=== PATIENT | male | born 1990 | race Two or more races ===

== ENCOUNTER → 2017-01-18 20:51 | Emergency (ER) | payer BC ==
[~2017-01-18 20:51] MED LIST: Dexamethasone TAB* 4 MG PO ONE
[2017-01-18 20:57] VITALS: BP 132/69
--- NOTE | 2017-01-18 22:03 | ED ---
Throat Pain/Nasal Congestion - HPI Summary HPI Summary: 26M presents with sore throat since . He denies any difficultly swallowing. he denies any chest pain, SOB, cough. He admits to headache, ear pain and occasionally sinus congestion. He denies any history of strept. he denies any one else being sick. He took ibuprofen without relief. 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 no fever. - History of Current Complaint Chief Complaint: EDThroatPain Time Seen by Provider: 01/18/17 21:13 - Allergies/Home Medications Allergies/Adverse Reactions: Allergies Allergy/AdvReac Type Severity Reaction Status Date / Time Aspirin Allergy Anaphylatic Verified 01/18/17 20:53 Shock Penicillins Allergy Unknown Verified 01/18/17 20:53 Reaction Details PMH/Surg Hx/FS Hx/Imm Hx Endocrine/Hematology History: Denies: Hx Anticoagulant Therapy Cardiovascular History: Denies: Hx Hypertension Infectious Disease History: No Infectious Disease History: Denies: Traveled Outside the [place] in Last 30 Days - Family History Known Family History: Negative: Cardiac Disease - Social History Alcohol Use: Occasionally Substance Use Type: Reports: None Smoking Status (MU): Unknown if Ever Smoked Review of Systems Negative: Fever Positive: Sore Throat Negative: Chest Pain Negative: Shortness Of Breath All Other Systems Reviewed And Are Negative: Yes Physical Exam Triage Information Reviewed: Yes Vital Signs On Initial Exam: Initial Vitals Temp Pulse Resp BP Pulse Ox 97.6 F 57 16 132/69 98 01/18/17 20:54 01/18/17 20:54 01/18/17 20:54 01/18/17 20:54 01/18/17 20:54 Vital Signs Reviewed: Yes Appearance: Positive: Well-Appearing Skin: Positive: Warm, Dry Head/Face: Positive: Normal Head/Face Inspection Eyes: Positive: Normal, EOMI, PADMAJA, Conjunctiva Clear ENT: Positive: Pharyngeal erythema, TMs normal, Tonsillar swelling, Other - uvula midline, soft palate symmetric. Negative: Tonsillar exudate, Trismus, Muffled/hoarse voice Neck: Positive: Supple, Nontender, No Lymphadenopathy Respiratory/Lung Sounds: Positive: Clear to Auscultation, Breath Sounds Present Cardiovascular: Positive: Normal, RRR Diagnostics - Vital Signs Vital Signs Temp Pulse Resp BP Pulse Ox 01/18/17 20:54 97.6 F 57 16 132/69 98 - Laboratory Lab Statement: Any lab studies that have been ordered have been reviewed, and results considered in the medical decision making process. EENT Course/Dx - Course Course Of Treatment: 26M presents with sore throat since . He denies any difficultly swallowing. he denies any chest pain, SOB, cough. He admits to headache, ear pain and occasionally sinus congestion. He denies any history of strept. he denies any one else being sick. He took ibuprofen without relief. on exam tonsils+2, uvula midline, soft palate symmetric. strept neg. will treat with decadron. patient understands and agrees with plan. - Differential Diagnoses Differential Diagnoses: Pharyngitis, URI/Bronchitis, Other - strept - Diagnoses Provider Diagnoses: Pharyngitis Discharge - Discharge Plan Condition: Good Disposition: HOME Prescriptions: Dexamethasone TAB* [Decadron TAB*] 4 mg PO DAILY #4 tab Magic Mouth Was-GRACE/MAAL/LIDO* 5 ml SWISH SPIT QID #100 ml Patient Education Materials: Pharyngitis (ED) Forms: *Work Release Referrals: Non Staff,Doctor [Primary Care Provider] - Additional Instructions: Magic mouthwash 5ml swish and spit can use 4x a day Take steroid once a day for 4 more days Take Tylenol or ibuprofen for pain Use saline spray in nose as much as needed Use humidifier in room or can use warm water in bowls Can gargle salt water Can use cough drops or products such as cloraseptic spray Return to ED if develop fever does not respond to Tylenol or ibuprofen, inability to swallow, or difficulty breathing or any new or worsening symptoms
== END | disposition home or self-care (01) ==
LOC: ED 20:51
DX: J02.9 Acute pharyngitis, unspecified (principal)
CPT/HCPCS: 87651; 99282; J8540

== ENCOUNTER 2017-01-29 17:28 | Emergency (ER) | payer BC ==
[2017-01-29 17:34] VITALS: BP 153/83
--- NOTE | 2017-01-29 17:36 | UC ---
Throat Pain/Nasal Loi HPI - HPI Summary HPI Summary: 26 YEAR OLD MALE PRESENTS WITH COMPLAINS OF SORE THROAT - History of Current Complaint Chief Complaint: UCGeneralIllness Stated Complaint: THROAT PAIN Time Seen by Provider: 01/29/17 17:36 Hx Obtained From: Patient Onset/Duration: Sudden Onset Severity: Moderate Pain Scale Used: 0-10 Numeric - 7 Cough: Nonproductive Associated Signs & Symptoms: Positive: Negative - Allergies/Home Medications Allergies/Adverse Reactions: Allergies Allergy/AdvReac Type Severity Reaction Status Date / Time Aspirin Allergy Anaphylatic Verified 01/29/17 17:34 Shock Penicillins Allergy Unknown Verified 01/29/17 17:34 Reaction Details PMH/Surg Hx/FS Hx/Imm Hx Previously Healthy: Yes Other History Of: Negative For: Anticoagulant Therapy - Surgical History Surgical History: None - Family History Known Family History: Negative: Cardiac Disease - Social History Alcohol Use: Occasionally Substance Use Type: None Smoking Status (MU): Never Smoked Tobacco Review of Systems Constitutional: Negative Skin: Negative Eyes: Negative ENT: Sore Throat, Nasal Discharge Respiratory: Negative Cardiovascular: Negative Gastrointestinal: Negative Genitourinary: Negative Motor: Negative Neurovascular: Negative Musculoskeletal: Negative Neurological: Negative Psychological: Negative All Other Systems Reviewed And Are Negative: Yes Physical Exam Triage Information Reviewed: Yes Vital Signs: Initial Vital Signs Temp 36.9 C 01/29/17 17:30 Pulse 81 01/29/17 17:30 Resp 18 01/29/17 17:30 BP 153/83 01/29/17 17:30 Pulse Ox 98 01/29/17 17:30 Eye Exam: Normal ENT: Positive: Pharyngeal erythema, Nasal drainage Dental Exam: Normal Neck exam: Normal Neck: Positive: 1 Respiratory Exam: Normal Cardiovascular Exam: Normal Abdominal Exam: Normal Musculoskeletal Exam: Normal Neurological Exam: Normal Psychological Exam: Normal Skin Exam: Normal Throat Pain/Nasal Course/Dx - Differential Dx/Diagnosis Provider Diagnoses: PHARYNGEAL ERYTHEMA. POST NASAL DRIP Discharge - Discharge Plan Condition: Stable Disposition: HOME Prescriptions: Azithromyxin LAMINE (NF) [Z-Lamine (Zithromax) 250 mg tabs #6] 2 tab PO .TODAY, THEN 1 DAILY #6 tab Chlorhexidine MW 0.12% 473ML* [Peridex Mouth Wash 0.12%*] 15 ml PO TID PC #480 ml LoraTADine TAB(NF) [Claritin 10 MG TAB(NF)] 10 mg PO DAILY #30 tab Patient Education Materials: Allergic Rhinitis (ED) Referrals: Non Staff,Doctor [Medical Doctor] -
== END 2017-01-29 18:03 | disposition home or self-care (01) ==
LOC: UCEAST 17:28
DX: J39.2 Other diseases of pharynx (principal); R09.82 Postnasal drip; Z88.6 Allergy status to analgesic agent; Z88.0 Allergy status to penicillin
CPT/HCPCS: 87070; 87651; 99212; G0463

== ENCOUNTER 2017-02-11 16:44 | Emergency (ER) | payer BC ==
[2017-02-11 16:57] VITALS: BP 129/70
--- NOTE | 2017-02-11 17:20 | UC ---
Respiratory Complaint HPI - HPI Summary HPI Summary: Pt here w/ URI sx 27 days now. Start[address] as ST w/ dysphagia. Went to ED 2 days later (01/18/2017). Saw Dr. Dyer - neg rapid strep but was tx'd w/ magic mouthwash and steroids. [place] better w/ steroid then pain returned upon completing. Was seen a 2nd time on 01/[address] Santos w/ ST and URI sx - rapid strep neg again - pt started on zpak, loratadine and chlorhexadine - some relief until past couple of days again. Throat cx revealed neg results. He admits to h/o allergies this time of year - usually better within 2 weeks of taking zytrec - not improving this year by trying this method. Denies fever, chills, N/V/D, ab pain, chest pain, SOB. Has a dry cough worse in AM. No rash. 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 Denies h/o autoimmune dz, diabetes. - History of Current Complaint Chief Complaint: UCRespiratory Stated Complaint: SORE THROAT, COUGH, AND CHEST CONGESTION Time Seen by Provider: 02/11/17 17:00 Hx Obtained From: Patient, Family/Test Pilot - female partner - Allergies/Home Medications Allergies/Adverse Reactions: Allergies Allergy/AdvReac Type Severity Reaction Status Date / Time Aspirin Allergy Anaphylatic Verified 02/11/17 16:57 Shock Penicillins Allergy Unknown Verified 02/11/17 16:57 Reaction Details PMH/Surg Hx/FS Hx/Imm Hx Previously Healthy: Yes Respiratory History: Other - seasonal allergies Other Respiratory History: seasonal allergies Other History Of: Negative For: Anticoagulant Therapy - Surgical History Surgical History: None - Family History Known Family History: Negative: Cardiac Disease - Social History Occupation: Employed Full-time Lives: With Family Alcohol Use: Occasionally Substance Use Type: None Smoking Status (MU): Never Smoked Tobacco Review of Systems Constitutional: Negative Skin: Negative Eyes: Eye Redness - watery w/o itching ENT: Other - see HPI Respiratory: Negative Cardiovascular: Negative Gastrointestinal: Negative, Other - no organomegaly Motor: Negative Neurovascular: Negative Musculoskeletal: Negative Neurological: Negative, Other - (-) Samantha (-) Lucinda Psychological: Negative Is Patient Immunocompromised?: No All Other Systems Reviewed And Are Negative: Yes Physical Exam Triage Information Reviewed: Yes Appearance: No Pain Distress - appears mildly fatigued but speaking in full sentences w/o difficulty, Obese Vital Signs: Initial Vital Signs Temp 98.5 F 02/11/17 16:55 Pulse 59 02/11/17 16:55 Resp 16 02/11/17 16:55 BP 129/70 02/11/17 16:55 Pulse Ox 98 02/11/17 16:55 Eyes: Positive: Other: - sclera w/ mild injection - no edema. Negative: Discharge ENT: Positive: Hearing grossly normal, Nasal congestion, TMs normal, Other: - tonsils +2, cryptic, no erythema, no exudate. Negative: Tonsillar swelling, Tonsillar exudate, Trismus, Muffled/hoarse voice Dental Exam: Normal Dental: Negative: Abscess @ Neck exam: Normal - sinuses NTTP Neck: Positive: Supple, Nontender, No Lymphadenopathy Respiratory Exam: Normal Respiratory: Positive: Lungs clear, Normal breath sounds. Negative: Crackles, Rhonchi, Stridor, Wheezing Cardiovascular Exam: Normal Cardiovascular: Positive: RRR. Negative: No Murmur Abdominal Exam: Normal Abdomen Description: Positive: Nontender, No Organomegaly, Soft Bowel Sounds: Positive: Present Musculoskeletal Exam: Normal Musculoskeletal: Positive: Strength Intact Neurological Exam: Normal Psychological Exam: Normal Skin Exam: Normal UC Diagnostic Evaluation - Laboratory O2 Sat by Pulse Oximetry: 98 Respiratory Course/Dx - Course Course Of Treatment: URI vs. allergies. With prolonged sx, will test for mono. Flu and strep continue to be negative. Will refer to ENT for further assessment of upper resp tract - Differential Dx/Diagnosis Provider Diagnoses: chronic URI sx Discharge - Discharge Plan Condition: Stable Disposition: HOME Prescriptions: Fluticasone NASAL * [Flonase *] 2 spray BOTH NARES DAILY #1 bottle Patient Education Materials: Upper Respiratory Infection (ED), Allergies (ED) Referrals: Joao Smith MD [Medical Doctor] - Additional Instructions: Start prescription nasal spray Continue antihistamines Try saline nasal washes and throat gargles Follow-up with ENT this week - call tomorrow to schedule an appointment as you may need further intervention *If you develop difficulty breathing or swallowing, go to ED
[2017-02-12 10:56] LABS: Hematocrit 41 % (42-52); Hemoglobin 13.7 g/dl (14.0-18.0); Mean Corpuscular HGB Conc 34 g/dl (31-36); Mean Corpuscular Hemoglobin 28 pg (27-31); Mean Corpuscular Volume 83 fL (80-94); Mean Platelet Volume 8 um3 (7.4-10.4); Red Blood Count 4.93 10^6/ul (4.0-5.4); Red Cell Distribution Width 14 % (10.5-15); White Blood Count 9.1 10^3/ul (3.5-10.8)
[2017-02-12 11:08] LABS: Albumin 4.6 g/dL (3.2-5.2); BUN/Creatinine Ratio 10.3 (8-20); Calcium 9.2 mg/dL (8.6-10.3); EGFR Non-African American 121.3 (>60); Globulin 2.8 g/dL (2-4); Potassium 3.9 mmol/L (3.5-5.0); Total Bilirubin 0.6 mg/dL (0.2-1.0); Total Protein 7.4 g/dL (6.4-8.9)
[2017-02-12 11:15] LABS: Mono Internal Control QC Line Present
[2017-02-12 11:16] LABS: Manual Entry Verification JEA0012
--- NOTE | 2017-02-12 16:32 | UC ---
Progress - Progress Note Progress Note: CALL PATIENT MONO (-), NO ACUTE CHANGES CBC/CMP. PLEASE FOLLOW UP WITH ENT. WE HAVE EXHAUSTED ALL OUR RESOURCES AND NEEDS TO SEE SPECIALIST.
== END 2017-02-11 17:55 | disposition home or self-care (01) ==
LOC: UCEAST 16:44
DX: J02.9 Acute pharyngitis, unspecified (principal); R05 Cough; R09.89 Other specified symptoms and signs involving the circulatory and respiratory systems; Z88.6 Allergy status to analgesic agent; Z88.0 Allergy status to penicillin
CPT/HCPCS: 36415; 80053; 85025; 86308; 86663; 87502; 87651; 99212; G0463